=== PATIENT | male | born 1965 | race Caucasian/White ===

== ENCOUNTER 2019-01-05 18:17 | Emergency (ER) | payer BC, OTHER ==
[2019-01-05] MEDS ORDERED: DEXAMETHASONE 4 MG TAB PO STA (18:48)
[2019-01-05] MEDS ORDERED: IPRATROPIUM 0.5 MG/2.5 ML NEBU INHALATION STA (18:48)
[2019-01-05] MEDS ORDERED: SODIUM CHLORIDE 0.9% 1,000 ML IV STA (18:48)
[2019-01-05] MEDS ORDERED: ALBUTEROL NEBULIZED 2.5 MG/3 ML INHALATION STA (18:48)
--- NOTE | 2019-01-05 18:53 | ED ---
General Adult HPI - General Chief complaint: Shortness of Breath Stated complaint: Rash,SILAS Time Seen by Provider: 01/05/19 18:37 Source: patient Mode of arrival: ambulatory Limitations: no limitations - History of Present Illness Initial comments: Dictation was produced using [employer] dictation software. please excuse any grammatical, word or spelling errors. Chief Complaint: 53-year-old male past medical history of chronic tobacco use presents with acute dyspnea and rash. History of Present Illness: Patient is a 53-year-old male. He states he recently moved into a new trailer. The past several weeks patient has been having a itching maculopapular rash localized to his thorax back and upper thighs. States that it is pruritic. Denies any constitutional symptoms. Patient recently changed his living pattern. There allegedly is other people in the living quarters that does not have similar symptoms. Patient also has secondary complaint of dyspnea and a productive cough. Patient states he has a past medical history of COPD. Patient states that over the last 2-3 days he's been having URI type symptoms. Again, denies any constitutional symptoms. The ROS documented in this emergency department record has been reviewed and confirmed by me. Those systems with pertinent positive or negative responses have been documented in the HPI. All other systems are other negative and/or noncontributory. PHYSICAL EXAM: General Impression: Alert and oriented x3, not in acute distress HEENT: Normocephalic atraumatic, extra-ocular movements intact, pupils equal and reactive to light bilaterally, mucous membranes moist. Cardiovascular: Heart regular rate and rhythm, S1&S2 audible, no murmurs, rubs or gallops Chest: Diffuse wheezing Abdomen: Bowel sounds present, abdomen soft, non-tender, non-distended, no organomegaly Musculoskeletal: Pulses present and equal in all extremities, no peripheral edema Motor: Power 5/5 bilaterally, no focal deficits noted Neurological: CN II-XII grossly intact, no focal motor or sensory deficits noted Skin: Diffuse non-erythematous maculopapular rash to the anterior thorax, back, upper thigh area. There are no lesions to the extremities. There are linear excoriations diffusely. Psych: Normal affect and mood ED course: Is a 53-year-old male presents with clinical presentation consistent with COPD exacerbation and acute nonspecific contact dermatitis. Vital signs upon her shows blood pressure 88/66, heart rate of 111, 92% on room air. Patient is not in acute distress. Lungs are wheezy. given 500 mg azithromycin given that its late and he is unable to fill this prescription until tomorrow. Patient reevaluated after breathing treatment with improvement of symptoms. Blood pressures improved with intravenous fluids. Patient is not having any symptoms of nausea vomiting. Sightly slightly dehydrated. Chest x-ray obtained showing probable COPD. Labs are unremarkable. Patient's symptoms likely secondary to COPD exacerbation. Patient given repeat dose of Decadron to be taken in 48-72 hours. Prescription for albuterol inhaler and azithromycin given. Patient has premature physician. Told to follow-up with PCP upon discharge. Told to return to emergency Department with any worsening symptoms. In regards to patient's rash she is told to keep a log of things that may be possible causes. Otherwise he can follow up with outpatient for rash. EKG interpretation: Ventricular rate 84, normal sinus rhythm, FL interval 146, care is 82, QTC 4:15. No FL prolongation, no QTC prolongation. There are nonspecific T-wave inversions noted in aVL.. - Related Data Home Medications Medication Instructions Recorded Confirmed Phenylephrine/Dm/Acetaminop/GG 30 ml PO Q6HR PRN 01/05/19 01/05/19 [Vicks Dayquil Severe Cold-Flu] guaiFENesin SYRUP 100MG/5ML 200 mg PO Q6HR PRN 01/05/19 01/05/19 [Robitussin] Previous Rx's Medication Instructions Recorded Albuterol Inhaler [Ventolin Hfa 1 - 2 puff INHALATION RT-Q6H PRN 01/05/19 Inhaler] #1 inhaler Azithromycin [Zithromax Z-pack] 0 mg PO DIRECTED #6 tab 01/05/19 Dexamethasone [Decadron] 12 mg PO ONCE #2 tablet 01/05/19 Allergies Allergy/AdvReac Type Severity Reaction Status Date / Time No Known Allergies Allergy Verified 01/05/19 18:57 Review of Systems ROS Statement: Those systems with pertinent positive or pertinent negative responses have been documented in the HPI. ROS Other: All systems not noted in ROS Statement are negative. Past Medical History Past Medical History: No Reported History History of Any Multi-Drug Resistant Organisms: None Reported Past Surgical History: No Surgical Hx Reported Past Psychological History: Depression Smoking Status: Current every day smoker Past Alcohol Use History: Daily Past Drug Use History: None Reported General Exam Limitations: no limitations Course Vital Signs 01/05/19 01/05/19 01/05/19 18:26 19:14 19:15 Temperature 98.2 F Pulse Rate 111 H 102 H Respiratory 20 20 20 Rate Blood Pressure 88/60 91/59 O2 Sat by Pulse 92 L 95 Oximetry 01/05/19 01/05/19 01/05/19 19:17 20:11 20:43 Temperature Pulse Rate 96 92 106 H Respiratory 18 Rate Blood Pressure 100/72 O2 Sat by Pulse 98 Oximetry 01/05/19 20:54 Temperature 98.7 F Pulse Rate 98 Respiratory 17 Rate Blood Pressure 107/71 O2 Sat by Pulse 96 Oximetry Medical Decision Making - Lab Data Result diagrams: 01/05/19 19:06 01/05/19 19:06 Lab Results 01/05/19 01/05/19 01/05/19 Range/Units 19:06 19:06 19:06 WBC 8.7 (3.8-10.6) k/uL RBC 4.64 (4.30-5.90) m/uL Hgb 13.9 (13.0-17.5) gm/dL Hct 42.8 (39.0-53.0) % MCV 92.4 (80.0-100.0) fL MCH 30.0 (25.0-35.0) pg MCHC 32.5 (31.0-37.0) g/dL RDW 12.3 (11.5-15.5) % Plt Count 345 (150-450) k/uL Neutrophils % 72 % Lymphocytes % 17 % Monocytes % 5 % Eosinophils % 4 % Basophils % 1 % Neutrophils # 6.3 (1.3-7.7) k/uL Lymphocytes # 1.5 (1.0-4.8) k/uL Monocytes # 0.4 (0-1.0) k/uL Eosinophils # 0.4 (0-0.7) k/uL Basophils # 0.1 (0-0.2) k/uL Sodium 139 (137-145) mmol/L Potassium 4.3 (3.5-5.1) mmol/L Chloride 103 (98-107) mmol/L Carbon Dioxide 26 (22-30) mmol/L Anion Gap 10 mmol/L BUN 19 (9-20) mg/dL Creatinine 0.90 (0.66-1.25) mg/dL Est GFR (CKD-EPI)AfAm >90 (>60 ml/min/1.73 sqM) Est GFR (CKD-EPI)NonAf >90 (>60 ml/min/1.73 sqM) Glucose 112 H (74-99) mg/dL Plasma Lactic Acid Narciso 1.9 (0.7-2.0) mmol/L Calcium 9.4 (8.4-10.2) mg/dL Disposition Clinical Impression: COPD (chronic obstructive pulmonary disease) Disposition: HOME SELF-CARE Condition: Good Instructions (If sedation given, give patient instructions): Emphysema (ED) Prescriptions: Albuterol Inhaler [Ventolin Hfa Inhaler] 1 - 2 puff INHALATION RT-Q6H PRN #1 inhaler PRN Reason: Shortness Of Breath Azithromycin [Zithromax Z-pack] 0 mg PO DIRECTED #6 tab Dexamethasone [Decadron] 12 mg PO ONCE #2 tablet Is patient prescribed a controlled substance at d/c from ED?: No Referrals: Marlena Yeh MD [Primary Care Provider] - 1-2 days Time of Disposition: 21:14
[2019-01-05 19:18] LABS: Basophils # (A) 0.1 k/uL (0-0.2); Basophils % (A) 1 %; Eosinophils # (A) 0.4 k/uL (0-0.7); Eosinophils % (A) 4 %; HCT 42.8 % (39.0-53.0); HGB 13.9 gm/dL (13.0-17.5); Lymphocytes # (A) 1.5 k/uL (1.0-4.8); Lymphocytes % (A) 17 %; MCHC 32.5 g/dL (31.0-37.0); MCV 92.4 fL (80.0-100.0); Monocytes # (A) 0.4 k/uL (0-1.0); Monocytes % (A) 5 %; Neutrophils # (A) 6.3 k/uL (1.3-7.7); Neutrophils % (A) 72 %; Platelet Count 345 k/uL (150-450); RBC 4.64 m/uL (4.30-5.90); RDW 12.3 % (11.5-15.5); WBC 8.7 k/uL (3.8-10.6)
[2019-01-05 19:34] LABS: Anion Gap 10 mmol/L; Blood Urea Nitrogen 19 mg/dL (9-20); Calcium 9.4 mg/dL (8.4-10.2); Carbon Dioxide 26 mmol/L (22-30); Chloride 103 mmol/L (98-107); Glucose 112 mg/dL (74-99); Potassium 4.3 mmol/L (3.5-5.1); Sodium 139 mmol/L (137-145)
[2019-01-05 20:55] VITALS: PULSE 98; TEMP 98.7
[2019-01-05] MEDS ORDERED: AZITHROMYCIN 500 MG TAB PO STA (20:59)
[2019-01-05] MEDS ORDERED: ACETAMINOPHEN TAB 500 MG TAB PO STA (21:09)
[2019-01-05 21:29] VITALS: BP 116/70; RESP 16
--- NOTE | 2019-01-06 06:09 | XR ---
EXAMINATION TYPE: XR chest 2V DATE OF EXAM: 01/05/2019 COMPARISON: NONE HISTORY: Short of breath TECHNIQUE: Frontal and lateral views of the chest are obtained. FINDINGS: Heart and mediastinum are normal. Lungs are clear. There is mild pulmonary hyperinflation. Bony thorax is intact. IMPRESSION: There is probably COPD. No active cardiopulmonary disease. Normal heart.
--- NOTE | 2019-01-06 06:13 | CDI ---
Dear Michael Arredondo DO: Please do addendum Physical Examination. Thank you, Arely Herrera, Health Worker. If you have any questions, please contact [employer] at [phone]. [facility]
== END 2019-01-05 21:26 | disposition home or self-care (01) ==
LOC: EC 18:17
DX: J44.9 Chronic obstructive pulmonary disease, unspecified (principal); E86.0 Dehydration; R21 Rash and other nonspecific skin eruption; L29.9 Pruritus, unspecified; F17.200 Nicotine dependence, unspecified, uncomplicated
CPT/HCPCS: 99285; 96360; 96361; 36415; 94640; 94644; 93005; 80048; 83605; 85025; 71046; J8540

== ENCOUNTER 2019-09-09 18:55 | Emergency (ER) | payer OTHER ==
[2019-09-09 19:20] VITALS: BP 122/76; PULSE 92; RESP 18; TEMP 98.1
[2019-09-09] MEDS ORDERED: DIPH,PERTUS(ACELL)TETVAC-LF 0.5 ML VIAL IM ONE (19:26)
[2019-09-09] MEDS ORDERED: ONDANSETRON 4 MG/2 ML VIAL IVP STA (19:26)
[2019-09-09] MEDS ORDERED: SODIUM CHLORIDE 0.9% 1,000 ML IV STA (19:26)
[2019-09-09] MEDS ORDERED: MORPHINE SULFATE 4 MG/ML SYRINGE IVP STA (19:27)
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
[2019-09-09 19:44] LABS: Basophils # (A) 0.1 k/uL (0-0.2); Basophils % (A) 1 %; Eosinophils # (A) 0.2 k/uL (0-0.7); Eosinophils % (A) 1 %; HCT 41.9 % (39.0-53.0); HGB 14.2 gm/dL (13.0-17.5); Lymphocytes # (A) 1.2 k/uL (1.0-4.8); Lymphocytes % (A) 7 %; MCH 32.2 pg (25.0-35.0); MCHC 33.9 g/dL (31.0-37.0); Mean Platelet Volume 5.7; Monocytes # (A) 0.6 k/uL (0-1.0); Monocytes % (A) 3 %; Neutrophils # (A) 16.1 k/uL (1.3-7.7); Neutrophils % (A) 88 %; Platelet Count 281 k/uL (150-450); RBC 4.41 m/uL (4.30-5.90); RDW 12.7 % (11.5-15.5); WBC 18.3 k/uL (3.8-10.6)
[2019-09-09 19:54] LABS: ALT 25 U/L (21-72); AST 31 U/L (17-59); African American GFR (CKD) >90 (>60 ml/min/1.73 sqM); Albumin 4.6 g/dL (3.5-5.0); Alkaline Phosphatase 37 U/L (38-126); Amylase 67 U/L (30-110); Anion Gap 14 mmol/L; Blood Urea Nitrogen 20 mg/dL (9-20); Calcium 9.9 mg/dL (8.4-10.2); Carbon Dioxide 24 mmol/L (22-30); Chloride 101 mmol/L (98-107); Creatine Kinase 230 U/L (55-170); Glucose 126 mg/dL (74-99); Non-African American GFR(CKD) >90 (>60 ml/min/1.73 sqM); Potassium 4.5 mmol/L (3.5-5.1); Sodium 139 mmol/L (137-145); Total Bilirubin 0.4 mg/dL (0.2-1.3); Total Protein 7.7 g/dL (6.3-8.2)
[2019-09-09 19:57] LABS: Alcohol 201 mg/dL
[2019-09-09 20:07] LABS: INR 0.9 (<1.2); Prothrombin Time 9.8 sec (9.0-12.0)
[2019-09-09 20:08] LABS: Troponin I <0.012 ng/mL (0.000-0.034)
[2019-09-09] MEDS ORDERED: HYDROmorphone 1 MG/ML 1 ML SYRINGE IVP STA ×2 (20:27→21:44)
[2019-09-09 20:31] LABS: Appearance,Urine Clear (Clear); Bilirubin,Urine Negative (Negative); Blood,Urine Negative (Negative); Color,Urine Light Yellow; Glucose,Urine (UA) Negative (Negative); Ketones,Urine Negative (Negative); Leukocyte Esterase,Urine Negative (Negative); Nitrite,Urine Negative (Negative); PH, Urine 6.5 (5.0-8.0); Protein,Urine Negative (Negative); Specific Gravity,Urine 1.022 (1.001-1.035); Urobilinogen,Urine <2.0 mg/dL (<2.0)
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
[2019-09-09] MEDS ORDERED: SODIUM CHLORIDE 0.9% 1,000 ML IV SCH (20:45)
[2019-09-09 20:47] LABS: Amphetamine Screen,Urine Not Detected (NotDetected); Barbiturate Screen,Urine Not Detected (NotDetected); Benzodiazepines Screen,Urine Not Detected (NotDetected); Cocaine Screen,Urine Not Detected (NotDetected); Methadone Screen, Urine Not Detected (NotDetected); Opiate Screen,Urine Not Detected (NotDetected); Oxycodone Screen, Urine Not Detected (NotDetected); Phencyclidine Screen,Urine Not Detected (NotDetected); Tricyclic Antidepressant,Urine Not Detected (NotDetected); Urn Cannabinoid Scrn Not Detected (NotDetected)
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
== END 2019-09-09 22:15 | disposition other institution (70) ==
LOC: EC 18:55
DX: S42.212A Unspecified displaced fracture of surgical neck of left humerus, initial encounter for closed fracture (principal); S41.112A Laceration without foreign body of left upper arm, initial encounter; F10.129 Alcohol abuse with intoxication, unspecified; E87.2 Acidosis; D72.829 Elevated white blood cell count, unspecified; Z23 Encounter for immunization; J44.9 Chronic obstructive pulmonary disease, unspecified; F17.200 Nicotine dependence, unspecified, uncomplicated; Z79.899 Other long term (current) drug therapy; Z79.51 Long term (current) use of inhaled steroids; V86.55XA Driver of 3- or 4- wheeled all-terrain vehicle (ATV) injured in nontraffic accident, initial encounter; Y93.89 Activity, other specified
CPT/HCPCS: 99291; 96365; 96375 ×3; 96376; 90471; 96361 ×2; 36415; 93005; 86900; 86901; 80053; 82150; 82550; 82553; 83605; 83690; 84484; 85025; 85610; 85730; 86850; 81003; 80306; 80320; 72170; 73030; 73070; 71045; 72125; 70450; 71260; 74177; 90715; J2270; J0690; J2405; J1170; Q9967; 96374